=== PATIENT | male | born 1985 | race Two or more races ===

== ENCOUNTER 2020-06-07 07:11 | Emergency (ER) | payer OTHER ==
[~2020-06-07] VITALS: Ht 188 cm; Wt 68.0 kg
[2020-06-07 07:20] VITALS: BP 137/88
--- NOTE | 2020-06-07 07:52 | NUR ---
covid swab collected and sent to lab
--- NOTE | 2020-06-07 09:47 | NUR ---
LAB CALLED PT COVID RESULT NEGATIVE (-)
--- NOTE | 2020-06-07 09:57 | NUR ---
Patient discharged to home in stable condition. Written and verbal after care instructions given. Patient verbalizes understanding of instruction.
== END 2020-06-07 09:57 ==
LOC: ER 07:14
DX: R05 Cough (principal); R09.89 Other specified symptoms and signs involving the circulatory and respiratory systems; Z20.822 Contact with and (suspected) exposure to COVID-19
CPT/HCPCS: 87426; 99283; C9803